=== PATIENT | male | born 1995 | race Caucasian/White ===

== ENCOUNTER 2018-05-07 10:19 | Emergency (ER) | payer OTHER ==
[2018-05-07 10:36] VITALS: BP 135/68
[2018-05-07] MEDS ORDERED: IBUPROFEN 800 MG TABLET PO ONE (10:55)
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
== END 2018-05-07 11:10 | disposition home or self-care (01) ==
LOC: ER 10:19
DX: S39.012A Strain of muscle, fascia and tendon of lower back, initial encounter (principal); S29.012A Strain of muscle and tendon of back wall of thorax, initial encounter; V43.52XA Car driver injured in collision with other type car in traffic accident, initial encounter; F17.290 Nicotine dependence, other tobacco product, uncomplicated; Z71.6 Tobacco abuse counseling
CPT/HCPCS: 99283; 99406

== ENCOUNTER 2018-05-12 08:20 | Emergency (ER) | payer OTHER ==
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
[2018-05-12 10:46] VITALS: BP 136/69
== END 2018-05-12 10:45 | disposition home or self-care (01) ==
LOC: ER 08:20
DX: F07.81 Postconcussional syndrome (principal); R51 Headache; R42 Dizziness and giddiness; R11.0 Nausea; M54.5 Low back pain; V43.52XA Car driver injured in collision with other type car in traffic accident, initial encounter; G89.29 Other chronic pain
CPT/HCPCS: 99284; 72110; 70450; 72125; L0120